=== PATIENT | female | born 1940 | race Caucasian/White ===

== ENCOUNTER 2018-10-06 09:58 | Emergency (ER) | payer OTHER ==
[~2018-10-06] VITALS: Ht 162.6 cm; Wt 56.7 kg
[~2018-10-06 09:58] MED LIST: CILOSTAZOL50 MG; GRALISE1 EACH; HYDRODIURIL12.5 MG; INDOMETHACIN1 MG; NABUMETONE25 GM; PREDNISOLONE5 G1; SIMVASTATIN5 MG; TIROSINT50 MCG; VERAPAMIL ER100 MG
[2018-10-06] MEDS ORDERED: SIMVASTATIN20 MG PO (10:36)
[2018-10-06] MEDS ORDERED: FOLIC ACID1 MG PO (10:38)
[2018-10-06] MEDS ORDERED: VERAPAMIL ER240 MG PO (10:38)
[2018-10-06] MEDS ORDERED: ZANTAC300 MG PO (10:39)
[2018-10-06] MEDS ORDERED: LEVO-T75 MCG PO (10:41)
[2018-10-06] MEDS ORDERED: HYDROCHLOROTHIA25 MG PO (10:42)
[2018-10-06] MEDS ORDERED: INDOMETHACIN75 MG PO (10:42)
== END 2018-10-06 14:15 | disposition home or self-care (01) ==
LOC: ER 09:58
DX: M79.662 Pain in left lower leg (principal); M54.5 Low back pain

== ENCOUNTER 2020-10-21 12:33 | Emergency (ER) | payer OTHER ==
[~2020-10-21] VITALS: Ht 160 cm; Wt 56.2 kg
[~2020-10-21 12:33] MED LIST changes: +FOLIC ACID1 MG PO; +HYDROCHLOROTHIA25 MG PO; +INDOMETHACIN75 MG PO; +LEVO-T75 MCG PO; +SIMVASTATIN20 MG PO; +VERAPAMIL ER240 MG PO; +ZANTAC300 MG PO
[2020-10-21] MEDS ORDERED: SYNTHROID50 MCG PO (12:50)
== END 2020-10-21 22:57 | disposition designated cancer center or children's hospital (05) ==
LOC: ER 12:33 → CPU-OBS 13:27 → ER 22:57
DX: I21.3 ST elevation (STEMI) myocardial infarction of unspecified site (principal)
CPT/HCPCS: G0378; G0379; 93005